=== PATIENT | female | born 1965 | race Caucasian/White ===

== ENCOUNTER 2023-10-19 10:57 | Emergency (ER) | payer OTHER, SELFPAY ==
[2023-10-19 11:02] VITALS: BP 126/90
[2023-10-19 12:25] VITALS: BP 101/81
[2023-10-19] MEDS: NSS 500 IV (12:25)
[2023-10-19] MEDS: ZOFRAN 4 MG IV ×2 (12:25→14:59)
[2023-10-19] MEDS: MORPHINE SULFATE 4 MG IV ×2 (12:25→15:01)
--- NOTE | 2023-10-19 12:31 | ED.GENMED ---
History of Present Illness
General
Chief Complaint: Abdominal Pain
Source: patient and family
Exam Limitations: none
Time Seen by Provider: 10/19/23 12:05
Nursing documentation reviewed up to this point in time: agreed with
Travel History
Have you had any contact with someone who has COVID-19?: No
Do you have any symptoms of coronavirus? Fever > 100 degrees, chills, cough, shortness of breath, sore throat, loss of taste or smell, muscle aches, or headache?: No
History of Present Illness
History of Present Illness:
58-year-old female past medical history of metastatic colorectal cancer has been on palliative care graduated from palliative care and currently is seeking hospice. Over the past few days she has had significant worsening abdominal pain and nausea.
She does have this chronically but claims this is worse than usual. She is not currently taking any pain medications or nausea medication.
Review of Systems
Review of Systems
Allergies reviewed?: Yes
All Other Systems: ROS reviewed and negative except as documented in HPI and ROS
Phy Exam
Physical Exam
Physical Exam:
GENERAL: Alert , in no apparent distress
EYE: pupils equal and reactive
NECK: Supple, no significant adenopathy.
ENT: o/p clr, mmm.
CARDIAC: Regular rate and rhythm .
LUNGS: Clear breath sounds bilaterally, no acute respiratory distress, no wheezes/rales/rhonchi
ABDOMEN: Soft, without focal tenderness, no r/g, no cvat
NEUROLOGICAL: Alert and oriented, no focal neuro deficits
SKIN: Warm and dry, skin intact.
MUSCULOSKELETAL: No edema, well perfused.
PSYCH: Normal and appropriate interaction.
Course
Orders/Labs/Results
Orders:
Orders
10/19/23 11:10
Electrocardiogram (*1) Urgent
Reason for Study: Abdominal Pain
EKG- Treatment ONCE
IV Insert/Care/Rem.- Treatment PRN
10/19/23 12:14
Case Management Consult ONCE
Case Management Consult: Hospice
Hospice: Evaluation and treat
0.9% Sodium Chloride 500 ml [Nss] 500 ml IV BOLUS
Morphine Sulfate 4 mg IV NOW STA
Ondansetron Injectable [Zofran] 4 mg IV NOW STA
10/19/23 12:21
Complete Blood Count/With Diff Urgent
Comprehensive Metabolic Panel Urgent
Lipase Urgent
Troponin I Urgent
10/19/23 14:43
Morphine Sulfate 4 mg IV NOW STA
Ondansetron Injectable [Zofran] 4 mg IV NOW STA
10/19/23 14:44
0.9% Sodium Chloride 1000 ml [Nss] 1,000 ml IV BOLUS
Abnormal Lab Results
10/19/23
12:21
WBC 12.8 H 10^3/uL
(4.8-10.8)
MCHC 32.9 L g/dL
(33.0-37.0)
Plt Count 433 H 10^3/uL
(130-400)
Abs Immat Gran (auto) 0.1 H 10^3/uL
(0-0.05)
Absolute Neuts (auto) 11.1 H 10^3/uL
(1.4-6.5)
Absolute Lymphs (auto) 0.7 L 10^3/uL
(1.2-3.4)
Absolute Monos (auto) 0.9 H 10^3/uL
(0.1-0.6)
Immature Gran % 0.6 H %
(0-0.5)
Neutrophils % 86.9 H %
(42.2-75.2)
Lymphocytes % 5.4 L %
(20.5-51.1)
Sodium 131 L mmol/L
(135-145)
Chloride 95 L mmol/L
(98-107)
BUN 21 H mg/dl
(7-17)
Creatinine 0.4 L mg/dL
(0.6-1.0)
Glucose 105 H mg/dl
(70-99)
AST 231 H U/L
(14-36)
ALT 74 H U/L
(0-35)
Alkaline Phosphatase 524 H U/L
(38-126)
10/19/23 12:21
10/19/23 12:21
Vital Signs
Initial and Last Documented VS:
Initial Vital Signs
Temp Pulse Resp BP Pulse Ox
97.8 F 128 28 126/90 97
10/19/23 11:02 10/19/23 11:02 10/19/23 11:02 10/19/23 11:02 10/19/23 11:02
Last Documented Vital Signs
Temp Pulse Resp BP Pulse Ox
97.8 F 110 18 128/89 97
10/19/23 11:02 10/19/23 16:00 10/19/23 16:00 10/19/23 16:00 10/19/23 11:02
MDM/Problems Addressed
MDM/Problems Addressed:
58-year-old female presenting to the emergency department today with concerns of worsening abdominal pain nausea in the setting of metastatic colon cancer. Has had ongoing discomfort for many and is seeking hospice at this time. She does not want
additional imaging at this time. Initial vital signs showing tachycardia plan to treat symptomatically with morphine Zofran and fluids. Symptoms significant improved after receiving Zofran and morphine. Patient was consulted with case management
and hospice was set up. Doing better and was stable for outpatient management with further hospice care moving forward. Vital signs improving throughout ER stay.
*Critical Care Note
Total Time (30-74mins, 75-104mins- exclusive of procedures): Not Applicable
ED Attending Note
-
Portions of this chart may have been created with voice recognition software.� Occasional wrong word or��sound alike� substitutions may have occurred due to the inherent limitations of voice recognition software.
Discharge Plan
Departure
Patient Disposition: Home (Routine Discharge)
Date of Disposition: 10/19/23
Time of Disposition: 15:16
Patient with high blood pressure during this ER visit?: No
Condition: Good
Covid-19: Not Applicable
Discharge Problem:
Pain, Shoulder pain, Abdominal pain
Instructions: Medical care during advanced illness
Prescriptions:
New
ondansetron 4 mg tablet,disintegrating
4 mg PO Q6H PRN (Reason: nausea and vomiting) Qty: 14 0RF
morphine concentrate 100 mg/5 mL (20 mg/mL) solution
10 mg PO Q3H PRN (Reason: Pain) Qty: 30 0RF
Referrals:
UNKNOWN - PT DOES,NOT KNOW [Family Provider] -
Activity Restrictions/Additional Instructions:
You came to the emergency department today with concerns of ongoing discomfort. Please take the prescribed morphine 10 mg every 3 hours as needed and Zofran 4 mg every 4 hours as needed for nausea. Please have close with hospice. Return to the
emergency department for any worsening, new or concerning symptoms.
Interventions
Interventions:
*Risk Screen - Suicide Last Done: 10/19/23 11:02
*General Assessment Last Done: 10/19/23 11:02
*Neglect/Abuse Screening Last Done: 10/19/23 11:02
ED- Fall Risk Assessment Last Done: 10/19/23 15:04
*ED COVID-19 Vaccine History Last Done: 10/19/23 11:02
*Nursing Disposition Last Done: 10/19/23 16:21
MK-Obugir-Kvcptdhcox Assessment Last Done: 10/19/23 11:02
Discharge Date and Time
Discharge Date/Time: 10/19/23 16:22
Print Language: VINCENTIAN
[2023-10-19 12:34] LABS: % Basophils 0.4 % (0-2); % Immature Granulocytes 0.6 % (0-0.5); % Lymphocytes 5.4 % (20.5-51.1); % Monocytes 6.7 % (1.7-9.3); % Neutrophils 86.9 % (42.2-75.2); Absolute Basophils 0.1 10^3/uL (0-0.2); Absolute Immature Granulocytes 0.1 10^3/uL (0-0.05); Absolute Lymphocytes 0.7 10^3/uL (1.2-3.4); Absolute Monocytes 0.9 10^3/uL (0.1-0.6); Absolute Neutrophils 11.1 10^3/uL (1.4-6.5); Hemoglobin 14.8 g/dL (12.0-16.0); Mean Corp Hgb Conc. 32.9 g/dL (33.0-37.0); Mean Corpuscular Volume 91.3 fL (81.0-99.0); Mean Platelet Volume 9.2 fL (7.4-10.4); Nucleated Red Blood Cells % 0 %; Platelet Count 433 10^3/uL (130-400); Red Blood Cell Count 4.93 10^6/uL (4.20-5.40); Red Cell Dist. Width 13.5 % (11.5-14.5); White Blood Cell Count 12.8 10^3/uL (4.8-10.8)
[2023-10-19 12:56] LABS: ALT (SGPT) 74 U/L (0-35); AST (SGOT) 231 U/L (14-36); Albumin 4.1 g/dl (3.5-5.0); Alkaline Phosphatase 524 U/L (38-126); Blood Urea Nitrogen 21 mg/dl (7-17); Calcium 9.8 mg/dl (8.4-10.2); Carbon Dioxide 27 mmol/L (22-30); Chloride 95 mmol/L (98-107); Glucose 105 mg/dl (70-99); Lipase 263 U/L (23-300); Potassium 4.5 mmol/L (3.5-5.1); Sodium 131 mmol/L (135-145); Total Bilirubin 1.3 mg/dl (0.2-1.3); Total Protein 7.1 g/dl (6.3-8.2); eGFR > 60.00
[2023-10-19 13:00] VITALS: BP 127/89
[2023-10-19 13:07] LABS: Troponin I 0.018 ng/ml
--- NOTE | 2023-10-19 13:18 | CM ---
Addendum entered by Rocky Allan 10/19/23 13:28:
Per regional transfer liaison, verification insurance required and it cannot be done today and will be done tomorrow. Per regional transfer liaison pt will be admitted to hospice most likely tomorrow after verification her insurance.
Original Note:
CM following re: discharge planning.
CM consulted to arrange hospice care at home.
Reviewed pt's chart, met with pt and pt's daughter Beverly at bedside.
Pt is a 58 year old female, arrived to ED with primary concerns of Abdominal Pain with past medical history of metastatic colorectal cancer has been on palliative care graduated from palliative care and currently is seeking hospice.
Pt reports she lives with a friend in an apartment 1st floor. has 2 supportive children. Pt reports her friend and her daughter Beverly are her caregivers. Pt reports she ambulates with a cane, has own home oxygen. No VN or SNF history. Pt stated
she wants hospice care at home. A list of hospice care agencies provided to the pt. Pt preferred hospice. A referral to hospice made, spoke to liabarbi Carranza and she will evaluate the pt shortly with a plan to get pt home with hospice care.
D/C plan: home with hospice.
CM will follow to assist pt with discharge home with hospice care.
[2023-10-19 14:00] VITALS: BP 117/92
--- NOTE | 2023-10-19 14:36 | HOSPNOTE ---
Referral received. Patient will be admitted to hospice services today at home. I spoke to the patient and explained hospice and she is in agreement. Local fill of Morphine and Zofran will be obtained before patient goes home. Daughter Beverly will
be driving patient home. No equipment needed at this time, patient owns her oxygen. Hospice nurse will meet patient and daughter at home to sign onto service this afternoon. CM and Attending made aware.
[2023-10-19] MEDS: NSS 1000 IV (14:59)
[2023-10-19 15:12] VITALS: BMI 17.2
[2023-10-19 16:00] VITALS: BP 128/89
== END 2023-10-19 16:22 | disposition home or self-care (01) ==
LOC: EMR 10:57
PROVIDERS: EMERGENCY PHYSICIAN Emergency Medicine
DX: M25.519 Pain in unspecified shoulder (principal); R10.9 Unspecified abdominal pain; Z51.5 Encounter for palliative care; Z85.048 Personal history of other malignant neoplasm of rectum, rectosigmoid junction, and anus
CPT/HCPCS: 99283; 96374; 96375; 96376; 96361; 80053; 83690; 84484; 85025; 93005

== ENCOUNTER 2023-10-29 09:37 | Inpatient (IN) | payer OTHER, SELFPAY ==
[2023-10-28 19:15] VITALS: BP 119/87
--- NOTE | 2023-10-28 21:31 | ED.GENMED ---
History of Present Illness
General
Chief Complaint: Failure to Thrive
Time Seen by Provider: 10/28/23 21:30
Travel History
Have you had any contact with someone who has COVID-19?: No
Do you have any symptoms of coronavirus? Fever > 100 degrees, chills, cough, shortness of breath, sore throat, loss of taste or smell, muscle aches, or headache?: No
History of Present Illness
History of Present Illness:
HPI: Sent by [facility] for inpatient hospice as she is failing outpt hospice (pain not controlled w/ oral meds). She has a history of metastatic colorectal cancer. She has pain in her abdomen and in the left upper extremity. She has been taking
hourly morphine which has not helped. She also feels that she is getting dehydrated.
EXAM:
GENERAL: The patient is ill-appearing and is cachectic in appearance
HEENT: Dry oral mucosa
CARDIOVASCULAR: No murmurs, tachycardic heart rate, regular rhythm, No chest wall tenderness
PULMONARY: No respiratory distress, breath sounds are clear and equal
ABDOMEN: Soft with no peritoneal signs, moderate diffuse tenderness
NEUROLOGIC: Some weakness noted to the left upper extremity
PSYCHIATRIC: Mild cognitive impairment and appears slightly confused at times
EXTREMITIES: Decreased active range of motion of the left upper extremity related to pain
SKIN: No rash, no lesions
TIME OF INITIAL ENCOUNTER: 9:45 PM
NUMBER AND COMPLEXITY OF PROBLEMS ADDRESSED AT THE ENCOUNTER
� Chronic conditions affecting care: Metastatic colon cancer
� Acute Exacerbation and/or Progression of Chronic Illness: This is an acute problem
� Differential Diagnosis includes: Pain management poor as outpatient, dehydration
AMOUNT AND/OR COMPLEXITY OF DATA TO BE REVIEWED AND ANALYZED
� I performed an independent evaluation of and my interpretation is:
EKG:
CT:
X-rays:
Laboratory Studies:
Other:
� Review of other/old records: I reviewed records. The patient was here 10/19/2023�went from palliative care to hospice. The patient was given morphine and Zofran last visit.
� Clinical information was obtained by an independent historian: I spoke to daughter at bedside
� Prescriptions/Medications Considered but not given:
� Further testing considered but not performed: Hold off on testing as she is under hospice care
RISK OF COMPLICATIONS AND/OR MORBIDITY OR MORTALITY OF PATIENT MANAGEMENT
� Social determinants of health affecting care: Under hospice care at home
� Discussion with other providers: I spoke to the hospice nurse Tiffany who states she is here for inpatient hospice
� Escalation of care including admission/observation vs risk of discharge considered: I spoke to hospitalist who accepts for further management of symptoms
Phy Exam
Physical Exam
Physical Exam:
See HPI
Course
Orders/Labs/Results
Orders:
Orders
10/28/23 21:51
HYDROmorphone [Dilaudid] 1 mg IV NOW STA
Ondansetron Injectable [Zofran] 4 mg IV NOW STA
Vital Signs
Initial and Last Documented VS:
Initial Vital Signs
Temp Pulse Resp BP Pulse Ox
97.4 F 144 26 119/87 93
10/28/23 19:15 10/28/23 19:15 10/28/23 19:15 10/28/23 19:15 10/28/23 19:15
Last Documented Vital Signs
Temp Pulse Resp BP Pulse Ox
97.4 F 144 26 119/87 93
10/28/23 19:15 10/28/23 19:15 10/28/23 19:15 10/28/23 19:15 10/28/23 19:15
*Critical Care Note
Total Time (30-74mins, 75-104mins- exclusive of procedures): Not Applicable
ED Attending Note
-
Portions of this chart may have been created with voice recognition software.� Occasional wrong word or��sound alike� substitutions may have occurred due to the inherent limitations of voice recognition software.
Discharge Plan
Departure
Patient Disposition: Admit
Date of Disposition: 10/28/23
Time of Disposition: 21:52
Presentation/result/management discussed w/ accepting MD/DO: Hospitalist
Discharge Problem:
Admission for hospice care
Prescriptions:
No Action
ondansetron 4 mg tablet,disintegrating
4 mg PO Q6H PRN (Reason: nausea and vomiting) Qty: 14 0RF
morphine concentrate 100 mg/5 mL (20 mg/mL) solution
10 mg PO Q3H PRN (Reason: Pain) Qty: 30 0RF
Interventions
Interventions:
*Risk Screen - Suicide Last Done: 10/28/23 19:12
*General Assessment Last Done: 10/28/23 19:12
*Neglect/Abuse Screening Last Done: 10/28/23 19:12
*ED COVID-19 Vaccine History Last Done: 10/28/23 19:12
Discharge Date and Time
Print Language: ERITREAN
--- NOTE | 2023-10-28 21:59 | HPS.HSE ---
Family Physician
-
Family Physician:
Chief Complaint
-
Left arm pain, abdominal pain
History of Present Illness
HPI: 58-year-old female, history of metastatic colorectal cancer on home hospice, who was sent in by [facility] for better pain control (pain not well controlled with oral meds at home). Pt c/o L arm pain and diffuse abdominal pain. She has been
taking hourly morphine at home which has not helped. She declined Ativan for anxiety.
She lives at home by herself with planer setter. Daughter comes to visit her every day
Medical History
Past Medical History
Past Medical History: Reports Other
Additional Past Medical History:
Metastatic colon cancer
Severe cachexia
Past Surgical History: Reports None
Social History
Tobacco: Former Smoker (30 years ago)
Living: Alone
Family History
Family History: Not pertinent
Allergies / Home Medications
Allergies reflects when Allergies were last updated in [facility].
Home Medications with original date entered in [facility]
Allergy/Medication List:
Allergies
Allergy/AdvReac Type Severity Reaction Status Date / Time
No Known Allergies Allergy Unverified 10/19/23 11:09
Home Medications
morphine concentrate 100 mg/5 mL (20 mg/mL) oral solution 10 mg (0.5 mL) PO Q3H PRN Pain #30 mL 10/19/23
ondansetron 4 mg disintegrating tablet 4 mg PO Q6H PRN nausea and vomiting #14 tabs 10/19/23
Review of Systems
-
Abdomen/GI: Reports Abdominal Pain and Nausea
Musculoskeletal: Reports Joint Pain (Left arm pain)
Physical Exam
Vital Signs
Vital Signs
Temp Pulse Resp BP Pulse Ox
36.3 C 144 26 119/87 93
10/28/23 19:15 10/28/23 19:15 10/28/23 19:15 10/28/23 19:15 10/28/23 19:15
Physical Exam
General: Appears Chronically Ill and Cachectic
HEENT: Oxygen (3 L nasal cannula)
Respiratory: Clear and Non Labored Respirations; No Accessory Resp Muscle Use
Cardiac: S1/S2 and Regular Rhythm
GI: Soft, Normal Bowel Sounds, Tender and Distended
Neuro: Awake
Psych: Calm and Intact Judgment/Insight
Impression/Plan
-
HPI: 58-year-old female, history of metastatic colorectal cancer on home hospice, who was sent in by [facility] for better pain control (pain not well controlled with oral meds at home). Pt c/o L arm pain and diffuse abdominal pain. She has been
taking hourly morphine at home which has not helped. She declined Ativan for anxiety.
She lives at home by herself with planer setter. Daughter comes to visit her every day
A/P:
# Admission for pain control with IV opioids
# Metastatic colorectal cancer
# Severe cachexia, failure to thrive
Start IV Dilaudid as needed for better pain control
IV Zofran as needed for nausea
No blood draw, continue hospice care
Continue O2 support at 3 L nasal cannula
DVT ppx: no need
DNR DNI
[2023-10-28] MEDS: DILAUDID 1 MG IV (22:06)
[2023-10-28] MEDS: ZOFRAN 4 MG IV (22:06)
[2023-10-28 22:31] VITALS: BMI 17.5
[2023-10-29 00:20] VITALS: BP 125/85
[2023-10-29 00:35] VITALS: BMI 17.3
[2023-10-29] MEDS: DILAUDID 1 MG IV ×5 (01:06→22:34)
--- NOTE | 2023-10-29 05:47 | PTCARENOTE ---
Received pt from the ED via stretcher. Pt was a difficult assist x1 from the stretcher to the hospital bed, pt refused stick puller. Pt c/o 'extreme' pain to the LUE, states any weight to the arm causes crippling pain. Pt slow moving utilizing assist
x1 on the right side to get into bed. AAOx3, c/o nausea, states her nausea is triggered by talking too much. Pt not interested in most admission questions. Discussed POC with pt, reviewed pain regimen, pt c/o 12/16 pain and originally declining pain
medication. After settling belongings, pt agreeable to accept pain meds, PRN Dilaudid given, see MAR. Pt oriented to unit and call [place].
[2023-10-29 07:45] VITALS: BP 125/88
[2023-10-29] MEDS: ZOFRAN 4 MG IV ×3 (08:11→22:29)
--- NOTE | 2023-10-29 11:01 | W.PN.HOSP.TC ---
Today's Communication/Plan
-
Start MS Contin
Bowel regimen
Assessment / Plan
Assessment / Plan
58-year-old female admitted with pain. She was on hospice for the past 2 weeks. She has a history of colon cancer diagnosed in 2014. Patient has been taking only morphine has not been helping .
She lives at home with a healthcare advisory services manager daughter visits every day.
On examination cachectic appearing
Cardiovascular system S1-S2 appreciated
Chest decreased breath sounds at bases next abdomen soft slightly distended
No pedal edema
Assessment
# Metastatic colorectal cancer
# Severe cachexia and severe protein calorie malnutrition
# Chronic back pain
# DNR/DNI
Plan
Pain control - Add Extended release Morphine 15 Q 12H
Continue Dilaudid for Break through pain
Constipation-offered an enema patient declined
Add bowel regimen
Discussed with voice writing reporter
Left message for daughter
Anticipated Discharge: 24 - 48 hours
Subjective/Interval History
-
Date of Service: October 29, 2023
Objective Data
-
Vital Signs:
Vital Signs
Temp Pulse Resp BP Pulse Ox
97.5 F 136 18 125/88 94
10/29/23 07:45 10/29/23 07:45 10/29/23 07:45 10/29/23 07:45 10/29/23 07:45
I&O
10/28/23 10/29/23 10/30/23
06:59 06:59 06:59
Intake Total 480 / 480
Balance 480 / 480
[2023-10-29] MEDS: SENOKOT PO ×3 (12:35→19:04)
[2023-10-29] MEDS: MS CONTIN (EXTENDED RELEASE) 15 MG PO ×2 (12:36→21:16)
[2023-10-29] MEDS: MIRALAX 17 GRAMS PO (12:36)
--- NOTE | 2023-10-29 13:43 | HOSPNOTE ---
Spoke with daughter and told her patient would most likely be able to be discharged back home and resume hospice services. The patient's symptoms seemed to be managed as far as N/V. The patient continues with pain, however it can be managed at home.
Will inform the daughter and the plan as long as patient continues to be stable is home tomorrow and daughter may drive patient unless transport will be needed.
[2023-10-29 15:13] VITALS: BP 117/82
--- NOTE | 2023-10-29 15:59 | CM ---
Reviewed the chart notes and spoke with the patient and her daughter at the bedside. The patient resides alone, but has had her daughter and another family member providing care 30/12. The patient is current with Hospice. The patient reports
having a rolling walker, wheelchair, home O2. The patient's discharge will depend on the patient's progress. CM continues to be available to patient/family and is monitoring medical plan for needs at discharge.
Plan: Discharge plans will depend on progress. Home with resumption of services or placement.
[2023-10-29 19:51] VITALS: BP 122/83
[2023-10-30] MEDS: DILAUDID 1 MG IV ×5 (02:43→20:13)
[2023-10-30] MEDS: ZOFRAN 4 MG IV (04:31)
[2023-10-30 07:25] VITALS: BP 138/91
[2023-10-30] MEDS: MS CONTIN (EXTENDED RELEASE) 15 MG PO ×2 (08:34→16:58)
[2023-10-30] MEDS: MIRALAX 17 GRAMS PO (08:34)
[2023-10-30] MEDS: SENOKOT 17.1999999999999993 MG PO ×2 (08:34→20:12)
--- NOTE | 2023-10-30 12:15 | W.PN.HOSP.TC ---
Today's Communication/Plan
-
Pain control
Nausea Control
Bowel regimen.
Assessment / Plan
Assessment / Plan
58-year-old female admitted with pain. She was on hospice for the past 2 weeks. She has a history of colon cancer diagnosed in 2014. Patient has been taking only morphine has not been helping .
She lives at home with a plant maintenance technician daughter visits every day.
On examination cachectic appearing
Cardiovascular system S1-S2 appreciated, tachy
Chest decreased breath sounds at bases next abdomen soft slightly distended
No pedal edema
Assessment
# Metastatic colorectal cancer
# Severe cachexia and severe protein calorie malnutrition
# Chronic back pain
# DNR/DNI
Plan
Pain control - Add Extended release Morphine 15 Q 12H- change to Q8H
Continue Dilaudid for Break through pain
Constipation-offered an enema again patient declined. She is aware Abd pain may be from constipation.
Continue bowel regimen
Discussed with hospice liaison
D/W RN
Spoke to patient's daughter in detail.
Daughter feels that patient is not eating much. We discussed about IV pain medicines and the goal to get her to taking oral pain medicines and be comfortable in no pain before she will be discharged. Also discussed that goal is not to give her IV
fluids but patient cannot have anything by p.o. as she can tolerate.
Daughter relates that patient is declining and requested to keep her here till the end. She feels that patient is declining. She also stated that they have difficulty with rn intensive care unit situation at home
We discussed about symptom management was reason for admission to inpatient hospice. I will defer further discussions about this to the family by outpatient hospice team.
Added Zofran for Nausea.
Anticipated Discharge: 24 - 48 hours
Subjective/Interval History
-
Date of Service: October 30, 2023
Objective Data
-
Vital Signs:
Vital Signs
Temp Pulse Resp BP Pulse Ox
97.5 F 133 20 138/91 97
10/30/23 07:25 10/30/23 07:25 10/30/23 07:25 10/30/23 07:25 10/30/23 07:25
I&O
10/29/23 10/30/23 10/31/23
06:59 06:59 06:59
Intake Total 480 / 480 960 / 960
Balance 480 / 480 960 / 960
[2023-10-30] MEDS: ZOFRAN 4 MG PO ×2 (13:20→20:12)
--- NOTE | 2023-10-30 16:03 | HOSPNOTE ---
Patient was assessed today and will remain inpatient hospice today and will re-evaluate tomorrow for patient to continue with home hospice. The patient has had no vomiting today but does continue with nausea. Pain seems to be managed but the patient
still complains of pain with movement. Appetite continues to be poor. Gave daughter report. Will see patient tomorrow.
[2023-10-30 19:35] VITALS: BP 117/83
[2023-10-31] MEDS: MS CONTIN (EXTENDED RELEASE) 15 MG PO ×4 (00:08→23:14)
[2023-10-31] MEDS: ZOFRAN 4 MG PO ×4 (03:15→21:05)
[2023-10-31] MEDS: DILAUDID 1 MG IV (03:29)
[2023-10-31 07:20] VITALS: BP 118/79
[2023-10-31] MEDS: MIRALAX 17 GRAMS PO (09:37)
[2023-10-31] MEDS: SENOKOT 17.1999999999999993 MG PO ×2 (09:37→21:05)
--- NOTE | 2023-10-31 10:25 | W.PN.HOSP.TC ---
Today's Communication/Plan
-
Her goal is to go home she also is requesting To take walks in the hallway with someone's help.
Assessment / Plan
Assessment / Plan
58-year-old female admitted with pain. She was on hospice for the past 2 weeks. She has a history of colon cancer diagnosed in 2015. Patient has been taking only morphine has not been helping .
She lives at home with a director metabolism daughter visits every day.
On examination cachectic appearing
Cardiovascular system S1-S2 appreciated, tachy
Chest decreased breath sounds at bases next abdomen soft slightly distended
No pedal edema
Awake alert and communicating
Assessment
# Metastatic colorectal cancer
# Severe cachexia and severe protein calorie malnutrition
# Chronic back pain
# DNR/DNI
Plan
Pain control - Add Extended release Morphine 15 Q 12H- changed to Q8H
Continue Dilaudid for Break through pain
Constipation-she feels that she cannot go only slight liquid comes out. She does not want enema but wants to try magnesium citrate.
Continue bowel regimen
Zofran added for nausea so that she can eat which is also likely making her constipated.
Patient Stated that she ate Yesterday after Zofran was added.
Her goal is to go home she also is requesting To take walks in the hallway with someone's help.
Anticipated Discharge: 24 - 48 hours
Subjective/Interval History
-
Date of Service: October 31, 2023
Objective Data
-
Vital Signs:
Vital Signs
Temp Pulse Resp BP Pulse Ox
97.5 F 121 18 118/79 95
10/31/23 07:20 10/31/23 07:20 10/31/23 07:20 10/31/23 07:20 10/31/23 07:20
I&O
10/30/23 10/31/23 11/01/23
06:59 06:59 06:59
Intake Total 960 / 960 180 / 180
Balance 960 / 960 180 / 180
--- NOTE | 2023-10-31 12:35 | HOSPNOTE ---
Spoke with patient and she states she did have one episode of vomiting last evening and the floor RN verified. The patient was sitting on the side of the bed drinking some juice when I arrived. Patient stated as long as she keeps up with her
medications the pain seemed controlled. The patient is still receiving IV dilaudid for breakthrough pain. I called the daughter Beverly to update. The patient still remains inpatient for symptom management of pain and n/v.
[2023-10-31] MEDS: CITROMA 150 ML PO (13:02)
--- NOTE | 2023-10-31 14:35 | CM ---
Reviewed the chart notes and spoke with the patient at the bedside. The patient related that she has been residing in a male friend's home and he has become her caregiver along with her daughter. Patient concerned for caregiver burnout. Provided
a list of the area homemaker/quantometer operator agencies. CM continues to be available to patient/family and is monitoring medical plan for needs at discharge.
Plan: Patient is being followed by Hospice.
[2023-10-31] MEDS: DESENEX/MITRAZOL/ZEASORB 1 APPLIC TOPICAL (16:55)
[2023-10-31 19:15] VITALS: BP 113/77
[2023-11-01] MEDS: ZOFRAN 4 MG PO ×4 (01:09→21:30)
[2023-11-01] MEDS: DILAUDID 1 MG IV ×4 (01:09→23:56)
--- NOTE | 2023-11-01 02:09 | PTCARENOTE ---
Addendum entered by Meche Paez RN 11/01/23 02:13:
Time correction- IV Dilaudid 1mg given @ 0109.
Original Note:
PRN IV Dilaudid 1mg given for 7/10 lower back pain @ 0209.
[2023-11-01 07:40] VITALS: BP 126/82
[2023-11-01] MEDS: SENOKOT 17.1999999999999993 MG PO ×2 (08:45→21:28)
[2023-11-01] MEDS: MIRALAX 17 GRAMS PO (08:47)
[2023-11-01] MEDS: DESENEX/MITRAZOL/ZEASORB 1 APPLIC TOPICAL ×2 (08:47→21:33)
[2023-11-01] MEDS: MS CONTIN (EXTENDED RELEASE) 15 MG PO (08:47)
--- NOTE | 2023-11-01 10:52 | HOSPNOTE ---
Patient remains GIP for management of pain and nausea. Patient taking MsContin scheduled had required three PRN doses of IV Dilaudid in the past 24 hours, patient stated she is 'mostly comfortable'. Discussed with Dr. Ceron increasing scheduled
MSContin. Patient will start PRN PO Morphine to manage breakthrough pain. Patient continues with mild nausea, stated she is eating small meals slowly in an attmept to keep nausea under control. Discussed discharge planning and patient stated her
daughter is still working on her 'next move'. Spoke with patient's daughter Beverly and informed her that patient may discharged shortly, discussed going home or SNF. Beverly stated the plan would be for patient to go home they can not afford a SNF
without medicaid assistance.
--- NOTE | 2023-11-01 12:41 | W.PN.HOSP.TC ---
Today's Communication/Plan
-
MS Contin
Roxanol for breakthrough pain to be tried first
Possible discharge tomorrow
Assessment / Plan
Assessment / Plan
58-year-old female admitted with pain. She was on hospice for the past 2 weeks. She has a history of colon cancer diagnosed in 2015. Patient has been taking only morphine has not been helping .
She lives at home with a managing consultant daughter visits every day.
On examination cachectic appearing
Cardiovascular system S1-S2 appreciated, tachy
Chest decreased breath sounds at bases next abdomen soft slightly distended
No pedal edema
Awake alert and communicating
Assessment
# Metastatic colorectal cancer
# Severe cachexia and severe protein calorie malnutrition
# Chronic back pain
# DNR/DNI
Plan
Pain control - Increase Extended release Morphine 15 Q8H to 30 Q12H
Continue Roxanal and IV Dilaudid for Break through pain
Constipation-Resolved with Bowel regimen.
She says appetite improved and she feels less nauseous
Continue bowel regimen
Zofran added for nausea -PO intake better.
Her goal is to go home she also is requesting To take walks in the hallway with someone's help.
D/W airbrush artist technical
D/W RN
Possible discharge home tomorrow
Pt wants to go home
Anticipated Discharge: Within 24 hours
Subjective/Interval History
-
Date of Service: November 01, 2023
Objective Data
-
Vital Signs:
Vital Signs
Temp Pulse Resp BP Pulse Ox
98.2 F 130 18 126/82 94
10/31/23 19:15 11/01/23 07:40 11/01/23 07:40 11/01/23 07:40 11/01/23 11:58
I&O
10/31/23 11/01/23 11/02/23
06:59 06:59 06:59
Intake Total 180 / 180 2039
Balance 180 / 180 2039
[2023-11-01] MEDS: MS CONTIN (EXTENDED RELEASE) 30 MG PO (17:00)
--- NOTE | 2023-11-01 18:31 | PTCARENOTE ---
Attempted to use oral morphine as pain relief per MD request, pt refused. Education provided. PRN Dilaudid provided upon request.
[2023-11-01 19:45] VITALS: BP 114/78
[2023-11-01] MEDS: ROXANOL ORAL CONCENTRATE 5 MG PO (21:27)
[2023-11-01] MEDS: ZOFRAN 4 MG IV (23:56)
--- NOTE | 2023-11-02 00:15 | PTCARENOTE ---
IV Zofran given for n/v; IV Dilaudid given for 8/10 pain.
[2023-11-02] MEDS: ZOFRAN PO (02:09)
[2023-11-02] MEDS: ROXANOL ORAL CONCENTRATE 5 MG PO ×2 (03:15→09:20)
[2023-11-02] MEDS: MS CONTIN (EXTENDED RELEASE) 30 MG PO ×2 (05:31→21:18)
--- NOTE | 2023-11-02 05:48 | PTCARENOTE ---
Patient had two episodes of vomiting this shift; each episode occurred within one hour after taking Roxanol PO.
[2023-11-02 07:30] VITALS: BP 104/70
[2023-11-02] MEDS: MIRALAX 17 GRAMS PO (09:20)
[2023-11-02] MEDS: ZOFRAN 4 MG PO ×3 (09:20→21:18)
[2023-11-02] MEDS: SENOKOT 17.1999999999999993 MG PO ×2 (09:21→21:16)
[2023-11-02] MEDS: DESENEX/MITRAZOL/ZEASORB 1 APPLIC TOPICAL ×2 (09:22→21:16)
--- NOTE | 2023-11-02 11:46 | W.PN.HOSP.TC ---
Today's Communication/Plan
-
May need to increase pain medicines
Change Zofran to Compazine.
Placement.
Assessment / Plan
Assessment / Plan
58-year-old female admitted with pain. She was on hospice for the past 2 weeks. She has a history of colon cancer diagnosed in 2015. Patient has been taking only morphine has not been helping .
She lives at home with a hotel baggage handler daughter visits every day.
On examination cachectic appearing
Cardiovascular system S1-S2 appreciated, tachy
Chest decreased breath sounds at bases next abdomen soft slightly distended
No pedal edema
Awake alert and communicating
Pain off and on. She has nausea uncontrolled.
Assessment
# Metastatic colorectal cancer
# Severe cachexia and severe protein calorie malnutrition
# Chronic back pain
# DNR/DNI
Plan
Pain control - Continue MS Contin 30 Q12H
Continue Roxanol and IV Dilaudid for Break through pain
Constipation-Resolved with Bowel regimen.
She says appetite improved and she feels less nauseous
Continue bowel regimen
Zofran added for nausea -PO intake better
Compazine for breakthrough Nausea.
D/W field horticultural specialty grower
D/W RN
Discussed with daughter at bed side, she states that patient cannot be cared for at home. Looking at placement. Patient may have medical assistance and hospice is trying to place her in a NH.
time 35 min
Anticipated Discharge: 24 - 48 hours
Subjective/Interval History
-
Date of Service: November 02, 2023
Objective Data
-
Vital Signs:
Vital Signs
Temp Pulse Resp BP Pulse Ox
97.4 F 112 16 104/70 97
11/02/23 07:30 11/02/23 07:30 11/02/23 07:30 11/02/23 07:30 11/02/23 07:30
I&O
11/01/23 11/02/23 11/03/23
06:59 06:59 06:59
Intake Total 2039 900 / 900
Balance 2039 900 / 900
--- NOTE | 2023-11-02 11:50 | HOSPNOTE ---
Patient remains GIP for management of pain and nausea. Patient had an epsiode of vomitting last evening and required IV Zofran. Per patient she vomitted this am. Spoke with patient and her daughter Beverly robledo. discharge planning, patient stated she
feels she would not be 'in a good space' to go home. Discussed SNF placement, patient and Beverly in agreement, feel that would be the best option. Notified [facility] to assist with locating a facility. Hospice will follow up.
[2023-11-02] MEDS: MS CONTIN (EXTENDED RELEASE) 15 MG PO (14:22)
--- NOTE | 2023-11-02 18:10 | CM ---
patient and daughter now thinking patient not able to go home.they wants patient to go to snf.patient still gip.hospice rep now asking for our assistance with placement.i informed rep that i was not able to assist with placement.i believe hospice
agency has an skating carhop social media marketing analyst who can assist with placement.
[2023-11-02 19:18] VITALS: BP 104/71
[2023-11-02] MEDS: COMPAZINE 10 MG IV (22:20)
[2023-11-03] MEDS: ZOFRAN PO ×2 (01:28→01:54)
--- NOTE | 2023-11-03 06:07 | W.PN.HOSP.TC ---
Today's Communication/Plan
-
cont pain control hospice comfort care measures
prn antiemetics
bowel regimen
Assessment / Plan
Assessment / Plan
Physical Exam
Gerneral: appears cachectic frail chronically ill
Cardiovascular system S1-S2 appreciated, tachy
Chest decreased breath sounds at bases next abdomen soft slightly distended
No pedal edema
Awake alert and communicating
58-year-old female admitted with pain. She was on hospice for the past 2 weeks. She has a history of colon cancer diagnosed in 2015. Patient has been taking only morphine has not been helping .
She lives at home with a tank builder supervisor daughter visits every day.
Pain off and on. Nausea intermittent since improved
Assessment
# Metastatic colorectal cancer
# Severe cachexia and severe protein calorie malnutrition
# Chronic back pain
# DNR/DNI
Plan
Pain control - Continue MS Contin 30 Q12H, afternoon MS contin discontinued 11/02 d/t patient's concern overmedication/sedation
Continue Roxanol and IV Dilaudid for Break through pain
Constipation-Resolved with Bowel regimen.
She says appetite improved and she feels less nauseous
Continue bowel regimen
Zofran added for nausea -PO intake better
Compazine for breakthrough Nausea.
D/W pillowcase cleaner
D/W RN
Hospitalist discussed with daughter at bed side, who stated that patient cannot be cared for at home. Looking at placement. Patient may have medical assistance and hospice is trying to place her in a NH.
I spent a total of 50 minutes with the patient or on the floor. More than 50% of this time involved counseling and coordination of care.
Anticipated Discharge: 24 - 48 hours
Subjective/Interval History
-
Date of Service: November 03, 2023
No acute distress reports pain well controlled at this time. Endorsed concern overmedicated with pain meds, refused afternoon MS contin.
Objective Data
-
Vital Signs:
Vital Signs
Temp Pulse Resp BP Pulse Ox
98.1 F 119 14 104/71 99
11/02/23 19:18 11/02/23 19:18 11/02/23 19:18 11/02/23 19:18 11/02/23 19:18
I&O
11/01/23 11/02/23 11/03/23
06:59 06:59 06:59
Intake Total 2039 / 2039 900 / 900 1380 / 1380
Balance 2039 / 0 900 / 900 1380 / 1380
[2023-11-03] MEDS: MS CONTIN (EXTENDED RELEASE) 30 MG PO ×2 (06:13→21:06)
[2023-11-03 07:40] VITALS: BP 108/72
[2023-11-03] MEDS: SENOKOT 17.1999999999999993 MG PO ×2 (09:00→20:57)
[2023-11-03] MEDS: ZOFRAN 4 MG PO ×2 (09:00→20:57)
[2023-11-03] MEDS: DESENEX/MITRAZOL/ZEASORB 1 APPLIC TOPICAL ×2 (09:00→20:57)
[2023-11-03] MEDS: MIRALAX 17 GRAMS PO (09:00)
--- NOTE | 2023-11-03 11:02 | HOSPNOTE ---
Patient assessed laying in the bed, eating breakfast atov. States she is 'managing it' when questioned about pain. Lungs clear to auscultation, heart rate and rhythm is regular, positive bowel sounds. Denies dyspnea. Reports appetite is fair.
Patient remains GIP at this time with discharge planning in place.
[2023-11-03] MEDS: MS CONTIN (EXTENDED RELEASE) PO ×2 (13:39→13:47)
[2023-11-03] MEDS: ZOFRAN 2 MG PO (13:39)
[2023-11-03] MEDS: ATIVAN 0.25 MG PO (16:25)
[2023-11-03] MEDS: ROXANOL ORAL CONCENTRATE 5 MG PO (16:25)
[2023-11-03 23:28] VITALS: BP 108/75
[2023-11-04] MEDS: ZOFRAN PO ×2 (02:30→13:00)
[2023-11-04] MEDS: MIRALAX 17 GRAMS PO (05:24)
--- NOTE | 2023-11-04 07:15 | W.PN.HOSP.TC ---
Today's Communication/Plan
-
cont pain control hospice comfort care measures
prn antiemetics
bowel regimen
Assessment / Plan
Assessment / Plan
Physical Exam
Gerneral: appears cachectic frail chronically ill
Cardiovascular system S1-S2 appreciated, tachy
Chest decreased breath sounds at bases next abdomen soft slightly distended
No pedal edema
Awake alert and communicating
58-year-old female admitted with pain. She was on hospice for the past 2 weeks. She has a history of colon cancer diagnosed in 2015. Patient has been taking only morphine has not been helping .
She lives at home with a cement finisher daughter visits every day.
Pain off and on. Nausea intermittent since improved
Assessment
# Metastatic colorectal cancer
# Severe cachexia and severe protein calorie malnutrition
# Chronic back pain
# DNR/DNI
Plan
Pain control - Continue MS Contin 30 Q12H, afternoon MS contin discontinued 11/02 d/t patient's concern overmedication/sedation
Continue Roxanol and IV Dilaudid for Break through pain
Constipation-Resolved with Bowel regimen.
She says appetite improved and she feels less nauseous
Continue bowel regimen
Zofran added for nausea -PO intake better
Compazine for breakthrough Nausea.
D/W fish and wildlife warden
D/W RN
Hospitalist discussed with daughter at bed side, who stated that patient cannot be cared for at home. Looking at placement. Patient may have medical assistance and hospice is trying to place her in a NH.
I spent a total of 50 minutes with the patient or on the floor. More than 50% of this time involved counseling and coordination of care.
Anticipated Discharge: 24 - 48 hours
Subjective/Interval History
-
Date of Service: November 04, 2023
Not tolerating oral meds. IV meds given instead. Otherwise appears comfortable at this time. Conversant. Intermittent nausea managed with antiemetic medications
Objective Data
-
Vital Signs:
Vital Signs
Temp Pulse Resp BP Pulse Ox
97.7 F 115 14 108/75 99
11/03/23 23:28 11/03/23 23:28 11/03/23 23:28 11/03/23 23:28 11/03/23 23:28
I&O
11/03/23 11/04/23 11/05/23
06:59 06:59 06:59
Intake Total 1380 / 1380 960 / 960
Balance 1380 / 1380 960 / 960
[2023-11-04] MEDS: DESENEX/MITRAZOL/ZEASORB 1 APPLIC TOPICAL ×2 (07:43→21:12)
[2023-11-04] MEDS: ZOFRAN 4 MG PO (07:48)
[2023-11-04] MEDS: SENOKOT 17.1999999999999993 MG PO (07:49)
[2023-11-04] MEDS: MS CONTIN (EXTENDED RELEASE) 30 MG PO ×2 (07:49→22:47)
[2023-11-04 08:00] VITALS: BP 115/82
[2023-11-04] MEDS: COMPAZINE 10 MG IV (08:04)
[2023-11-04] MEDS: DILAUDID 1 MG IV (10:06)
--- NOTE | 2023-11-04 10:37 | PTCARENOTE ---
Addendum entered by Rachel Forrest RN 11/04/23 13:13:
Patient continuing to refuse PO medications including scheduled PO zofran - zofran changed to PRN IV per MD.
Original Note:
Patient c/o nausea at beginning of shift, small episode of brown/green emesis after taking scheduled PO zofran. PRN IV compazine given - patient states partial relief of nausea after administration and eating small portion of breakfast. Patient
refusing to take other scheduled PO medications including senokot and Ms Contin. MD made aware, stated okay to give PRN IV dilaudid to manage patient's pain while refusing oral medications.
--- NOTE | 2023-11-04 11:18 | CM ---
CM reviewed pt with hospice/Shahnaz
Hospice SW is working on SNF placement
No CM follow up needed at this time
CM will remain available for assistance as needed
Discharge Disposition- SNF with hospice
[2023-11-04] MEDS: ZOFRAN 4 MG IV ×2 (13:20→21:26)
--- NOTE | 2023-11-04 13:36 | HOSPNOTE ---
Patient is now refusing any medications orally since she feels they are now contributing to her nausea. Patient appears SOB and anxious and I asked the nurse to please medicate. We are continuing to seek placement options. Patient will be seen daily
by hospice nurse.
[2023-11-04] MEDS: ROXANOL ORAL CONCENTRATE 5 MG PO ×2 (16:24→21:26)
[2023-11-04] MEDS: DULCOLAX 10 MG RECTAL (16:24)
[2023-11-04 19:42] VITALS: BP 109/70
[2023-11-04] MEDS: SENOKOT PO (21:12)
--- NOTE | 2023-11-04 22:33 | VATNOTE ---
unsuccessful IV restart x2. another VAT RN to attempt.
[2023-11-05] MEDS: MS CONTIN (EXTENDED RELEASE) 30 MG PO ×2 (06:16→20:50)
--- NOTE | 2023-11-05 07:52 | W.PN.HOSP.TC ---
Today's Communication/Plan
-
cont pain control hospice comfort care measures
prn antiemetics
bowel regimen
ativan prn anxiety
IV medications if unable to tolerate oral
Assessment / Plan
Assessment / Plan
Physical Exam
Gerneral: appears cachectic frail chronically ill
Cardiovascular system S1-S2 appreciated, tachy
Chest decreased breath sounds at bases next abdomen soft slightly distended
No pedal edema
Neuro: Awake alert and communicating, though some confusion noted, occasional tangential speech
58-year-old female admitted with pain. She was on hospice for the past 2 weeks. She has a history of colon cancer diagnosed in 2014. Patient has been taking only morphine has not been helping .
She lives at home with a digital marketing officer daughter visits every day.
Pain off and on. Nausea intermittent since improved
Assessment
# Metastatic colorectal cancer
# Severe cachexia and severe protein calorie malnutrition
# Chronic back pain
# DNR/DNI
Plan
Pain control - Continue MS Contin 30 Q12H, afternoon MS contin discontinued 11/02 d/t patient's concern overmedication/sedation
Continue Roxanol and IV Dilaudid for Break through pain
Constipation-Resolved with Bowel regimen.
She says appetite improved and she feels less nauseous
Continue bowel regimen
prn antiemetic zofran compazine
discussed/updated daughter Beverly over phone
I spent a total of 50 minutes with the patient or on the floor. More than 50% of this time involved counseling and coordination of care.
Anticipated Discharge: > 48 hours
Subjective/Interval History
-
Date of Service: November 05, 2023
tolerating oral medications. Constipation resolved at this time. pain controlled
Objective Data
-
Vital Signs:
Vital Signs
Temp Pulse Resp BP Pulse Ox
97.6 F 112 14 109/70 100
11/04/23 19:42 11/04/23 19:42 11/04/23 19:42 11/04/23 19:42 11/04/23 19:42
I&O
11/04/23 11/05/23 11/06/23
06:59 06:59 06:59
Intake Total 960 / 960 720 / 720
Balance 960 / 960 720 / 720
[2023-11-05 08:00] VITALS: BP 117/85
[2023-11-05] MEDS: DESENEX/MITRAZOL/ZEASORB 1 APPLIC TOPICAL ×2 (08:41→20:47)
[2023-11-05] MEDS: SENOKOT PO (08:43)
[2023-11-05] MEDS: MIRALAX 17 GRAMS PO (08:43)
--- NOTE | 2023-11-05 11:31 | HOSPNOTE ---
SN received patient sitting on edge of bed, patient awake and alert. Patient oriented x 3. Patient responsive to SN verbalization, patient denies any nausea or vomiting today. Patient did state throat felt sore after episode of vomiting the other
day. Patient ate about 25% of breakfast, and 50% of dinner last night. Patient lungs clear, breath sounds diminished. Patient has hypoactive bowel sounds, abdomen firm and non tender to palpation. Patient was assisted by SN to use comode, patient
urine dark blanca color. Perineal care provided during visit. Patient requested a biscadoyl suppository during visit. Patient denies pain, stated pain is being managed. Emotional support provided. Coordinated with SN Lincoln, stated patient had
mirilax this am and last BM on 11/04/23, no concerns at this time. Reinforced to call office with any questions or concerns. Expresses understanding. Patient remains inpatient appropriate for titration of medications for pain management and anxiety
that could not be managed in an outside setting. Discharge planning still continues
[2023-11-05] MEDS: ZOFRAN 4 MG IV (16:23)
[2023-11-05] MEDS: DULCOLAX 10 MG RECTAL (16:24)
[2023-11-05] MEDS: ROXANOL ORAL CONCENTRATE 5 MG PO (16:45)
[2023-11-05 19:31] VITALS: BP 113/83
[2023-11-05] MEDS: SENOKOT 17.1999999999999993 MG PO (20:48)
[2023-11-06] MEDS: MS CONTIN (EXTENDED RELEASE) 30 MG PO ×2 (06:37→21:08)
--- NOTE | 2023-11-06 06:55 | W.PN.HOSP.TC ---
Today's Communication/Plan
-
cont comfort measures
fall precautions
Assessment / Plan
Assessment / Plan
Physical Exam
Gerneral: appears cachectic frail chronically ill
Cardiovascular system S1-S2 appreciated, tachy
Chest decreased breath sounds at bases next abdomen soft slightly distended
No pedal edema
Neuro: Lethargic but arousable, communicating, some confusion noted, occasional tangential speech
58-year-old female admitted with pain. She was on hospice for the past 2 weeks. She has a history of colon cancer diagnosed in 2015. Patient has been taking only morphine has not been helping .
She lives at home with a supply chain vice president daughter visits every day.
Pain off and on. Nausea intermittent since improved
Assessment
# Metastatic colorectal cancer
# Severe cachexia and severe protein calorie malnutrition
# Chronic back pain
# DNR/DNI
Plan
Pain control - Continue MS Contin 30 Q12H, afternoon MS contin discontinued 11/02 d/t patient's concern overmedication/sedation
Continue Roxanol and IV Dilaudid for Break through pain
Continue bowel regimen
prn antiemetic zofran compazine
discussed/updated daughter Beverly over phone 11/04
I spent a total of 50 minutes with the patient or on the floor. More than 50% of this time involved counseling and coordination of care.
Anticipated Discharge: 24 - 48 hours
Subjective/Interval History
-
Date of Service: November 06, 2023
lethargic but arousable. slow mentation sometimes tangential speech. Appears comfortable. Pain controlled at this time.
Objective Data
-
Vital Signs:
Vital Signs
Temp Pulse Resp BP Pulse Ox
97.1 F 132 22 113/83 97
11/05/23 19:31 11/05/23 19:31 11/05/23 19:31 11/05/23 19:31 11/05/23 19:31
I&O
11/04/23 11/05/23 11/06/23
06:59 06:59 06:59
Intake Total 960 / 960 720 / 720 1280 / 1280
Balance 960 / 960 720 / 720 1280 / 1280
[2023-11-06 07:25] VITALS: BP 113/76
[2023-11-06] MEDS: DESENEX/MITRAZOL/ZEASORB 1 APPLIC TOPICAL (09:21)
[2023-11-06] MEDS: MIRALAX 17 GRAMS PO (09:21)
[2023-11-06] MEDS: SENOKOT 17.1999999999999993 MG PO ×2 (09:24→20:51)
[2023-11-06] MEDS: ROXANOL ORAL CONCENTRATE 5 MG PO (09:27)
--- NOTE | 2023-11-06 12:17 | HOSPNOTE ---
Patient is aaox3, feels pain is being managed at this time. Appetite is fair, patient is concerned about BM and is an ongoing issue and staff aware. The plan is for patient to be placed in a SNF hospice SW is working on placement. Patient continues
to remain inpatient hospice for titration of pain medications and to monitor nausea.
--- NOTE | 2023-11-06 13:49 | CM ---
patient remains on ip hospice for pain control and nausea managment ,hospice educator working on snf placment.
[2023-11-06] MEDS: ZOFRAN 4 MG IV (14:35)
[2023-11-06 19:25] VITALS: BP 111/79
[2023-11-06] MEDS: DESENEX/MITRAZOL/ZEASORB TOPICAL (20:53)
--- NOTE | 2023-11-07 07:24 | W.PN.HOSP.TC ---
Today's Communication/Plan
-
start dilaudid gtt
prn ativan anxiety
prn antiemetics
prn laxative
prn haldol agitation
Assessment / Plan
Assessment / Plan
Physical Exam
Gerneral: appears cachectic frail chronically ill
Cardiovascular system S1-S2 appreciated, tachy
Chest decreased breath sounds at bases next abdomen soft slightly distended
No pedal edema
Neuro: Awake alert but confusion noted sometimes tangential speech
Psych: calm
58-year-old female admitted with pain. She was on hospice for the past 2 weeks. She has a history of colon cancer diagnosed in 2014. Patient has been taking only morphine has not been helping .
She lives at home with a cane weigher daughter visits every day.
Pain off and on. Nausea intermittent since improved
Assessment
# Metastatic colorectal cancer
# Severe cachexia and severe protein calorie malnutrition
# Chronic back pain
# DNR/DNI
Plan
Pain control attempted with MS Contin 30 Q12H, afternoon MS contin discontinued 11/02 d/t patient's concern overmedication/sedation
Continue Roxanol and IV Dilaudid for Break through pain
Continue bowel regimen
prn antiemetic zofran compazine
11/06 Patient reported pain well controlled, constipation manageable, later same day during daughter THA Paul's visit patient reported pain uncontrolled, ready to go home tonight, and that she wants to . Notably patient had been refusing pain
medications throughout the day (including her scheduled pain medications) denying pain throughout the day to nurse staff. Sometimes Tangential speech, significant concerns patient unable to give accurate report of her pain level due to confusion.
Also concerns intermittent refusals, pt unable to understand consequences of her decision, further contributing to poor pain control- unlikely that patient has capacity to make her own medical decisions at this time. Hospital stay was also notable
for intermittent refusal oral pain meds due to difficulty swallowing with associate nausea vomiting concerning for opiate withdrawal. Discussed with patient and patient's daughter THA Paul concerns that patient's pain is not well controlled with
current oral scheduled prn regimen. Further discussed potential benefit dilaudid gtt for more adequate baseline pain control. Patient and daughter THA Paul in agreement with starting gtt, medication was ordered accordingly.
I spent a total of 59 minutes with the patient or on the floor. More than 50% of this time involved counseling and coordination of care.
Anticipated Discharge: 24 - 48 hours
Subjective/Interval History
-
Date of Service: November 07, 2023
Seen and examined at bedside morning patient in no acute distress sitting up comfortably in chair with IVF bolus (per patient's request) running. Patient exhibiting signs of confusion asking if morphine is running in IVF. Reports pain well
controlled at this time, constipation manageable. Later during daughter THA Paul's visit patient reported pain uncontrolled, ready to go home tonight, and that she wants to . Notably patient had been refusing pain medications throughout the
day (including her scheduled pain medications) denying pain throughout the day. Tangential speech, significant concerns unable to give accurate report of her pain level due to confusion.
Objective Data
-
Vital Signs:
Vital Signs
Temp Pulse Resp BP Pulse Ox
97.1 F 120 17 111/79 100
11/06/23 19:25 11/06/23 19:25 11/06/23 19:25 11/06/23 19:25 11/06/23 19:25
I&O
11/06/23 11/07/23 11/08/23
06:59 06:59 06:59
Intake Total 1280 / 1280 820 / 820
Balance 1280 / 1280 820 / 820
[2023-11-07 07:25] VITALS: BP 101/70
[2023-11-07] MEDS: MS CONTIN (EXTENDED RELEASE) PO (08:24)
[2023-11-07] MEDS: MIRALAX 17 GRAMS PO (08:45)
[2023-11-07] MEDS: DESENEX/MITRAZOL/ZEASORB 1 APPLIC TOPICAL ×2 (08:45→20:11)
[2023-11-07] MEDS: SENOKOT PO ×2 (08:46→20:11)
--- NOTE | 2023-11-07 10:14 | HOSPNOTE ---
Patient assessed sitting up in the recliner, flat affect, responds appropriately to all assessment questions. Reports that her pain is managed at this time, and that she does continue to experience nausea but that it is not 'debilitating'. Mild
crackles to the lungs, hypoactive bowel sounds, heart rate and rhythm is tachycardic. Reports constipation is a continuing issue for her, but that her team here at is helping her manage it. This visit she states that she is dehydrated and
declining and adamantly requests a one time bolus of IV fluids for comfort. Appears anxious, and reports this issue is causing increased anxiety, however she declines an offer of ativan at this time stating she has been 'trying to back off of that
stuff'. This SN explained that IV fluids are not usually provided when on hospice, however patient remains firm in her request. Communicated with Shahnaz Bautista, and Dr Garza. Shahnaz communicated with Hospice Nurse operations section manager Shahida Bee. Bolus of
IV fluids approved, and Dr. Garza submitted order to the medication list. At this time the patient declined this SN's offer to reach out with updates to the patient's daughter. Discharge planning continues.
[2023-11-07] MEDS: NSS 500 IV (10:17)
[2023-11-07] MEDS: ZOFRAN 4 MG IV ×2 (14:29→22:08)
--- NOTE | 2023-11-07 15:10 | PTCARENOTE ---
patient denies pain at this time. offered pain medications multiples times. refusing at this time. plan of care ongoing. call francisco within reach.
[2023-11-07] MEDS: DILAUDID 50 IV (17:17)
[2023-11-07] MEDS: DILAUDID 0.25 MG IV ×4 (17:55→20:14)
[2023-11-07] MEDS: DILAUDID 0.5 MG IV (22:56)
[2023-11-08 00:31] VITALS: BP 101/69
[2023-11-08] MEDS: DILAUDID 0.5 MG IV ×4 (02:41→15:58)
[2023-11-08 07:35] VITALS: BP 97/60
--- NOTE | 2023-11-08 08:21 | W.PN.HOSP.TC ---
Today's Communication/Plan
-
cont comfort measures
Assessment / Plan
Assessment / Plan
Physical Exam
Gerneral: appears cachectic frail chronically ill
Cardiovascular system S1-S2 appreciated, tachy
Chest decreased breath sounds at bases next abdomen soft slightly distended
No pedal edema
Neuro: Awake alert but confusion noted sometimes tangential speech
Psych: calm
58-year-old female admitted with pain. She was on hospice for the past 2 weeks. She has a history of colon cancer diagnosed in 2015. Patient has been taking only morphine has not been helping .
She lives at home with a back digger operator daughter visits every day.
Pain off and on. Nausea intermittent since improved
Assessment
# Metastatic colorectal cancer
# Severe cachexia and severe protein calorie malnutrition
# Chronic back pain
# DNR/DNI
Plan
Pain control attempted with MS Contin 30 Q12H, afternoon MS contin discontinued 11/02 d/t patient's concern overmedication/sedation
Continue Roxanol and IV Dilaudid for Break through pain
Continue bowel regimen
prn antiemetic zofran compazine
11/06 Patient reported pain well controlled, constipation manageable, later same day during daughter THA Paul's visit patient reported pain uncontrolled, ready to go home tonight, and that she wants to . Notably patient had been refusing pain
medications throughout the day (including her scheduled pain medications) denying pain throughout the day to nurse staff. Sometimes Tangential speech, significant concerns patient unable to give accurate report of her pain level due to confusion.
Also concerns intermittent refusals, pt unable to understand consequences of her decision, further contributing to poor pain control- unlikely that patient has capacity to make her own medical decisions at this time. Hospital stay was also notable
for intermittent refusal oral pain meds due to difficulty swallowing with associate nausea vomiting concerning for opiate withdrawal. Discussed with patient and patient's daughter THA Paul concerns that patient's pain is not well controlled with
current oral scheduled prn regimen. Further discussed potential benefit dilaudid gtt for more adequate baseline pain control. Patient and daughter THA Paul in agreement with starting gtt, medication was ordered accordingly.
I spent a total of 50 minutes with the patient or on the floor. More than 50% of this time involved counseling and coordination of care.
Anticipated Discharge: 24 - 48 hours
Subjective/Interval History
-
Date of Service: November 08, 2023
no acute distress. comfortable.
Objective Data
-
Vital Signs:
Vital Signs
Temp Pulse Resp BP Pulse Ox
97.3 F 108 14 97/60 95
11/08/23 07:35 11/08/23 07:35 11/08/23 07:35 11/08/23 07:35 11/08/23 07:35
I&O
11/07/23 11/08/23 11/09/23
06:59 06:59 06:59
Intake Total 820 / 820 360 / 360
Balance 820 / 820 360 / 360
[2023-11-08] MEDS: SENOKOT PO ×2 (10:09→20:10)
[2023-11-08] MEDS: MIRALAX 17 GRAMS PO (10:10)
--- NOTE | 2023-11-08 11:30 | HOSPNOTE ---
Patient remains on continuous Dilaudid infusion at 0.5mg/hr prn x 1 in last 24 hours. Also struggling with nausea and vomiting. received Zofran IV x 2 in last 24 hours. Patient remains GIP level of care appropriate as placement in nursing facility
planning continues. Patient is eating small meals and moving her bowels with help of medications. Patient states she is SOB today, oxygen was not in nose and reminded patient to use oxygen for relief of symptoms. Patient wore oxygen briefly than
removed it again. OOB in chair. Phone made to daughter Beverly, message left with update and hospice nurse contact information.
[2023-11-08] MEDS: ZOFRAN 4 MG IV (14:13)
[2023-11-08] MEDS: FLUSH (NSS) 2 FLUSH IV ×3 (14:14→16:00)
[2023-11-08] MEDS: DILAUDID IV ×2 (14:19→14:20)
--- NOTE | 2023-11-08 15:15 | PTCARENOTE ---
Pt struggling trying to keep control of her care decisions. At times she presents confused and is unable to make safe choices for her care. She finally shared that she is having pain when her daughter came. Medicated pt 3x with Dilauidid
breakthrough medication for increasing pain levels to her mid back and abd. Zofran also given for her nausea. Pt had vomited dark brown emesis up est 300ml twice today. Provided comfort to pt. Pt now resting in bed.
[2023-11-08] MEDS: ATIVAN 0.25 MG IV (16:08)
[2023-11-08] MEDS: NSS (PRESERVATIVE FREE) 0.125 ML IV (16:08)
[2023-11-08] MEDS: DESENEX/MITRAZOL/ZEASORB TOPICAL (16:14)
[2023-11-08] MEDS: DESENEX/MITRAZOL/ZEASORB 1 APPLIC TOPICAL (20:50)
[2023-11-08 23:25] VITALS: BP 97/65
[2023-11-09] MEDS: ZOFRAN 4 MG IV (06:02)
[2023-11-09] MEDS: ATIVAN 2 MG IV (06:10)
--- NOTE | 2023-11-09 06:57 | W.PN.HOSP.TC ---
Today's Communication/Plan
-
cont comfort measures
Assessment / Plan
Assessment / Plan
Physical Exam
Gerneral: appears cachectic frail chronically ill
Cardiovascular system S1-S2 appreciated, tachy
Chest decreased breath sounds at bases next abdomen soft slightly distended
No pedal edema
Neuro: Awake alert but confusion noted sometimes tangential speech
Psych: calm
58-year-old female admitted with pain. She was on hospice for the past 2 weeks. She has a history of colon cancer diagnosed in 2015. Patient has been taking only morphine has not been helping .
She lives at home with a farm or ranch animal caretaker daughter visits every day.
Pain off and on. Nausea intermittent since improved
Assessment
# Metastatic colorectal cancer
# Severe cachexia and severe protein calorie malnutrition
# Chronic back pain
# DNR/DNI
Plan
Pain control attempted with MS Contin 30 Q12H, afternoon MS contin discontinued 11/02 d/t patient's concern overmedication/sedation
Continue Roxanol and IV Dilaudid for Break through pain
Continue bowel regimen
prn antiemetic zofran compazine
11/06 Patient reported pain well controlled, constipation manageable, later same day during daughter THA Paul's visit patient reported pain uncontrolled, ready to go home tonight, and that she wants to . Notably patient had been refusing pain
medications throughout the day (including her scheduled pain medications) denying pain throughout the day to nurse staff. Sometimes Tangential speech, significant concerns patient unable to give accurate report of her pain level due to confusion.
Also concerns intermittent refusals, pt unable to understand consequences of her decision, further contributing to poor pain control- unlikely that patient has capacity to make her own medical decisions at this time. Hospital stay was also notable
for intermittent refusal oral pain meds due to difficulty swallowing with associate nausea vomiting concerning for opiate withdrawal. Discussed with patient and patient's daughter THA Paul concerns that patient's pain is not well controlled with
current oral scheduled prn regimen. Further discussed potential benefit dilaudid gtt for more adequate baseline pain control. Patient and daughter THA Paul in agreement with starting gtt, medication was ordered accordingly.
I spent a total of 35 minutes with the patient or on the floor. More than 50% of this time involved counseling and coordination of care.
Anticipated Discharge: 24 - 48 hours
Subjective/Interval History
-
Date of Service: November 09, 2023
comfortable. no acute distress
Objective Data
-
Vital Signs:
Vital Signs
Temp Pulse Resp BP Pulse Ox
96.1 F L 106 14 97/65 91
11/08/23 23:25 11/08/23 23:25 11/08/23 23:25 11/08/23 23:25 11/08/23 23:25
I&O
11/07/23 11/08/23 11/09/23
06:59 06:59 06:59
Intake Total 820 / 820 360 / 360 480 / 480
Output Total 750 / 750
Balance 820 / 820 360 / 360 -270 / -270
[2023-11-09 07:25] VITALS: BP 94/66
--- NOTE | 2023-11-09 08:00 | PTCARENOTE ---
Pt given Ativan 2mg earlier this am from accounting recruiter due to feeling anxious. Currently pt asleep and positioned comfortable. P/t had c/o severe back pain yesterday along with abd pain and nausea and vomiting. Dilaudid gtt remains at step 2,
0.5mg/hr. Espinoza placed last night. VSS. Will cont to monitor.
[2023-11-09] MEDS: DILAUDID 50 IV (08:06)
[2023-11-09] MEDS: MIRALAX 17 GRAMS PO (09:26)
[2023-11-09] MEDS: DESENEX/MITRAZOL/ZEASORB 1 APPLIC TOPICAL ×2 (09:29→19:50)
--- NOTE | 2023-11-09 10:15 | HOSPNOTE ---
Patient remains GIP appropriate level of care. Continues on Dilaudid infusion at 0.5mg/hr received 3 additional doses last evening. Nurse encouraged patient to take additional prn doses but patient refused until daughter was visiting. Nurse Cristela
saw patient in pain but patient resistant to taking pain medication. Received Ativan x 2 and Zofran x 2 in last 24 hours. Patient vomited x2 yesterday approximately 300ml each time. Patient ordering meals but did not eat in last 24 hours. Taking
sips of fluid only.
Urinary catheterization for urinary retention with adames catheter remaining indwelling after 600 cc at time of catheterization.
Continue seeking placement but need to reevaluate daily as patient appears to be declining further.
--- NOTE | 2023-11-09 12:17 | PTCARENOTE ---
Pt received Ativan 2mg this am for her anxiety at 6amby night baker RN. SHAYY. Pain level diminished and pt comfortable. Currently she is still asleep and no further complaints noted. Report given to inspector poising this am. Pt had not been sleeping
and very anxious all day yesterday. Will cont to monitor.
[2023-11-09 19:23] VITALS: BP 105/70
[2023-11-10] MEDS: DESENEX/MITRAZOL/ZEASORB 1 APPLIC TOPICAL ×2 (08:06→20:39)
[2023-11-10] MEDS: DILAUDID 0.5 MG IV ×3 (08:06→18:18)
[2023-11-10] MEDS: ATIVAN 0.25 MG IV ×2 (08:14→18:18)
[2023-11-10] MEDS: MIRALAX PO (08:30)
[2023-11-10 08:46] VITALS: BP 108/73
--- NOTE | 2023-11-10 12:24 | CM ---
CM reviewed pt with Hospice/[facility]
Remains GIP appropriate as pt on drip since 11/06
CM will remains available for support as needed
--- NOTE | 2023-11-10 12:41 | W.PN.UPDATE ---
Update Note
Progress Note Update
58-year-old female admitted with pain. 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 She has a history of colon cancer diagnosed in 2014. Patient has been taking only morphine has not been helping . Admitted for pain control. Oral meds were not
working, so started IV drip 11/07/23
She lives at home with a mall plant caretaker daughter visits every day.
Patient arousable , denies pain
# Metastatic colorectal cancer
# Severe cachexia and severe protein calorie malnutrition
# Chronic back pain
# DNR/DNI
Plan
Control Dilaudid gtt
D/W Case management
D/W director of revenue
--- NOTE | 2023-11-10 12:55 | HOSPNOTE ---
Patient is very lethargic is now on a dilaudid drip and appears comfortable at this time. Continue to medicate for anxiety and pain. Patient will be seen daily by hospice nurse. Called daughter and updated with a message.
[2023-11-10] MEDS: NSS (PRESERVATIVE FREE) 0.125 ML IV (18:19)
[2023-11-10 19:25] VITALS: BP 94/65
[2023-11-10 20:13] VITALS: BP 94/65
[2023-11-11] MEDS: DILAUDID 0.5 MG IV ×6 (00:05→21:13)
[2023-11-11] MEDS: ATIVAN 0.25 MG IV ×4 (00:06→21:13)
[2023-11-11] MEDS: NSS (PRESERVATIVE FREE) 0.125 ML IV ×4 (00:06→21:13)
[2023-11-11 07:54] VITALS: BP 107/77
[2023-11-11] MEDS: MIRALAX PO (07:54)
[2023-11-11] MEDS: DESENEX/MITRAZOL/ZEASORB 1 APPLIC TOPICAL ×2 (07:56→21:06)
[2023-11-11] MEDS: DILAUDID 50 IV (09:01)
--- NOTE | 2023-11-11 09:12 | PTCARENOTE ---
new bag of hydromorphone drip 50 mg/ml activated. Old bag removed (50mg remaining). Controlled substance administration record sent to pharmacy [id number].
--- NOTE | 2023-11-11 11:07 | HOSPNOTE ---
Received patient in bed, patient minimally responsive. Daughter present during visit. Patient non responsive to SN verbalization or gentle touch, patient moaning and moving of knees at time. Flacc score 2. Lungs CTA, hypoactive bowel sounds noted.
Patient bilateral feet with +2 edema, bottom of patients bilateral feet cyanotic and cool to touch. Patient urine in adames bag dark blanca color, decreased urine output. No po food intake in last couple of days per daughter. Patient has had prn
ativan x 2 and prn dilaudid x 4 in last 24hrs. Much emotional support provided. Coordinated with SN Contreras, no concerns at this time. SN expressed to consuelo, patient moaning and fidgeting occasionally during visit. SN will administer PRN ativan.
Reinforced to call office with any questions or concerns. expresses understanding. Patient remains inpatient appropriate for management of pain and agitation that could nt be managed in an outside setting. Discharge planning continues.
--- NOTE | 2023-11-11 11:50 | W.PN.UPDATE ---
Update Note
Progress Note Update
58-year-old female admitted with pain. 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 She has a history of colon cancer diagnosed in 2014. Patient has been taking only morphine has not been helping . Admitted for pain control. Oral meds were not
working, so started IV drip 11/07/23
She lives at home with a school psychologist assistant daughter visits every day.
Unresponsive to verbal stimulus.
Comfortable on current rate drip.
# Metastatic colorectal cancer
# Severe cachexia and severe protein calorie malnutrition
# Chronic back pain
# DNR/DNI
Plan
Control Dilaudid gtt at same rate
D/W RN
[2023-11-11 19:32] VITALS: BP 104/85
[2023-11-12] MEDS: NSS (PRESERVATIVE FREE) 0.125 ML IV ×2 (03:14→10:39)
[2023-11-12] MEDS: DILAUDID 0.5 MG IV ×5 (03:14→18:34)
[2023-11-12] MEDS: ATIVAN 0.25 MG IV ×3 (03:14→18:35)
[2023-11-12 07:30] VITALS: BP 97/63
[2023-11-12] MEDS: DESENEX/MITRAZOL/ZEASORB TOPICAL (08:36)
[2023-11-12] MEDS: MIRALAX PO (08:36)
--- NOTE | 2023-11-12 09:58 | CM ---
CM reviewed chart
Pt remains in GIP service
CM remains available for support as needed
--- NOTE | 2023-11-12 10:07 | W.PN.UPDATE ---
Update Note
Progress Note Update
Metastatic colon cancer patient on hospice
On Dilaudid drip. Needed 1 dose for breakthrough pain this morning but other than that stable on the current rate.
On examination looks comfortable. Not much responsive except that she moans when moved.
Continue comfort care
--- NOTE | 2023-11-12 13:53 | HOSPNOTE ---
No family present at the time of visit. Patient is unresponsive at this time, appears comfortable but was just medicated with an IV push of dilaudid and ativan prior to receiving care. Patient was washed and repositioned. Patient's breathing is
shallow, but no distress noted. Patient continues to be inpatient appropriate for titration of IV medications. Patient will be seen daily by hospice nurse.
[2023-11-12 19:26] VITALS: BP 80/56
[2023-11-12] MEDS: DESENEX/MITRAZOL/ZEASORB 1 APPLIC TOPICAL (22:56)
--- NOTE | 2023-11-13 06:55 | W.PN.DEATH ---
Addendum entered and electronically signed by EDWINA Garcia 11/13/23 06:57:
Daughter called nursing floor and was updated on her mother's .
Original Note:
Pronouncement of
-
Called to see patient to pronounce.
No spontaneous heart tones or respirations noted.
Patient not responsive to verbal stimuli.
Patient is pronounced .
Time of : 06:35
Date of : 11/13/23
Family Notified: Yes (message left for daughter to call me at [phone]. No call back yet.)
--- NOTE | 2023-11-13 09:29 | W.PN.UPDATE ---
Update Note
Progress Note Update
Noted that patient .
Dictation- [id number]
--- NOTE | 2023-11-13 09:36 | HOSPNOTE ---
Called daughter Beverly to give her my condolences. She was very grateful for all the wonderful care that her mom received. All belongings were taken home by daughter.
--- NOTE | 2023-11-13 09:55 | PTCARENOTE ---
Patient passed at the end of night monitor. Mariam Wiley NP pronounced patient at [phone] and she talked with daughter. pattern carrier RN called [facility]. Possible candidate for corneas. Patient cleaned up and belongings packed. Cell phone, glasses
case and beaded bracelet placed in shoes in 1 of the bags. Daughter in to see mother. Daughter took 4 bags of belongings home. patient taken to the [facility]. Security will take patient chart to Medical Records.
== END 2023-11-13 09:47 | disposition expired | DRG 947 ==
LOC: 2 NORTH 09:37
PROVIDERS: ADMITTING PHYSICIAN Internal Medicine; ATTENDING PHYSICIAN Hospitalist; EMERGENCY PHYSICIAN Emergency Medicine
DX: G89.3 Neoplasm related pain (acute) (chronic) (principal); E43 Unspecified severe protein-calorie malnutrition; C19 Malignant neoplasm of rectosigmoid junction; C79.9 Secondary malignant neoplasm of unspecified site; Z68.1 Body mass index [BMI] 19.9 or less, adult; R64 Cachexia; Z51.5 Encounter for palliative care; R62.7 Adult failure to thrive; M54.9 Dorsalgia, unspecified; K59.00 Constipation, unspecified; M79.602 Pain in left arm; R10.84 Generalized abdominal pain; R11.2 Nausea with vomiting, unspecified; R13.10 Dysphagia, unspecified; Z66 Do not resuscitate; Z87.891 Personal history of nicotine dependence
CPT/HCPCS: 96374; 96375; 99285